=== PATIENT | male | born 1930 | race Caucasian/White ===

== ENCOUNTER → 2016-12-20 | Day surgery (SDC) | payer MEDICARE, BC ==
[~2016-12-20] MED LIST: ATORVASTATIN CA10 MG PO; CLOPIDOGREL BIS75 MG PO; LEVOTHYROXINE50 MCG PO; SYMBICORT 16010.2 GM INH
--- NOTE | ~2016-12-20 | OR ---
Unit #: [id number] #: [id number] Patient: TOMÁS LIN [id number] [address] [address] [id number] O MR#: [id number] NAME: TOMÁS LIN. ROOM: Date of Procedure: 12/20/2016 Admission Date: 12/20/2016 Surgeon: Bernabe Franklin M.D. : 1930 Attending Physician: Bernabe Franklin M.D. OPERATIVE REPORT PREOPERATIVE DIAGNOSES 1. Positive Cologuard test. 2. History of sigmoid colectomy for cancer. 3. Chronic diarrhea. POSTOPERATIVE DIAGNOSES 1. Positive Cologuard test. 2. History of sigmoid colectomy for cancer. 3. Chronic diarrhea. PROCEDURES PERFORMED 1. Esophagogastroduodenoscopy. 2. Biopsy of duodenum for celiac disease. 3. Biopsy of antrum for Helicobacter pylori testing. 4. Attempted colonoscopy to 15 cm. ANESTHESIA Monitored anesthesia care. FINDINGS The patient was found on upper endoscopy to have a small hiatal hernia and mild distal gastritis. On colonoscopy, the patient was found to have an anastomosis at 5 cm. It was widely patent. However at 18 cm, there was a very sharp turn and what appeared to be a stricture or narrowing. We were unable to pass beyond this point safely. SPECIMENS Sent to Pathology. COMPLICATIONS None apparent. CONDITION The patient tolerated the procedure well. INDICATIONS FOR PROCEDURE The patient is an 86-year-old white male, who in the early had a sigmoid colectomy for cancer. He has done well. He had a recent positive Cologuard test. He also has had frequent diarrhea. He presents at this time for evaluation by upper and lower endoscopy. DESCRIPTION OF PROCEDURE Unit #: [id number] #: [id number] Patient: TOMÁS LIN After obtaining informed consent, the patient was brought to the endoscopy suite and after adequate monitored anesthesia care, had the endoscope placed through the mouth into the upper esophagus under direct vision. It was advanced to the second portion of the duodenum without difficulty with the lumen always in view. A biopsy was obtained from the second and third portion of the duodenum to check for celiac disease and pathology. There was no abnormality seen. The duodenal bulb was normal. The pylorus opened normally. There was some mild distal gastritis present and a biopsy was obtained for Helicobacter pylori testing. On retroflexing back to the GE junction, there was a small hiatal hernia seen. No other abnormalities were found in the proximal third, middle third, or incisura. On pulling back above the GE junction, there was no stenosis, stricture, or neoplasm seen. No esophagitis. The remaining portion of the esophagus was within normal limits. Laryngeal structures were grossly normal as viewed from above. At this point in time, on digital examination, the patient had no palpable abnormality and had good sphincter tone on digital examination of the rectum. The colonoscope was placed through the anus and slowly advanced with the lumen always in view. At 15 cm, the patient was found to have his anastomosis from his previous colectomy. It was widely patent and there was no evidence of recurrence. The colonoscope was slowly advanced until 15 to 18 cm, there was a very sharp turn and what appeared to be some stricturing. Despite multiple body position changes and manipulations of the scope, we did not feel it was safe to advance beyond this point. The colonoscope was slowly pulled back. The colon was circumferentially visualized. There was no abnormality seen. We were unable to retroflex in the rectum, but on pulling out, there was no abnormality seen in the anal canal. The scope was removed without difficulty. The patient went from the endoscopy suite to recovery area in stable condition. RECOMMENDATIONS Gastroesophageal reflux sheet given, clear liquids only today, n.p.o. after midnight. Office will call and schedule the patient for barium enema tomorrow. Dictated by... Mikhail Sauceda/michell TD: 12/20/2016 11:04 JOB #: [id number] CC: Renetta King M.D. [facility] OPERATIVE REPORT Page 1 of 1 X Bernabe Franklin MD X PROCEDURE OPERATIVE NOTE
== END | disposition home or self-care (01) ==
LOC: COPS 07:34
DX: K52.9 Noninfective gastroenteritis and colitis, unspecified (principal); K29.70 Gastritis, unspecified, without bleeding; K44.9 Diaphragmatic hernia without obstruction or gangrene; E03.9 Hypothyroidism, unspecified; J45.909 Unspecified asthma, uncomplicated; K21.9 Gastro-esophageal reflux disease without esophagitis; Z85.038 Personal history of other malignant neoplasm of large intestine; Z90.49 Acquired absence of other specified parts of digestive tract; Z86.73 Personal history of transient ischemic attack (TIA), and cerebral infarction without residual deficits; Z88.0 Allergy status to penicillin; Z87.442 Personal history of urinary calculi; Z87.891 Personal history of nicotine dependence
CPT/HCPCS: 87077; 88305

== ENCOUNTER → 2016-12-21 | Outpatient (CLI) | payer MEDICARE, BC ==
--- NOTE | ~2016-12-21 | CR42 ---
[facility] A Service of [facility] & [facility] RADIOLOGY TEXT RESULTS PATIENT: TOMÁS LIN LOCATION: [facility] : [birth year] UNIT #: [id number] AGE: [address]: Bernabe Franklin MD SEX: M ORDER DR: [id number] [facility] [address] [place], [place] [address] [id number] O MR#: [id number] [facility] #: [id number] NAME: TOMÁS LIN : 1930 SEX: M STUDY DATE/TIME: 12/21/2016 11:03 UNIT: [facility] ROOM: STUDY DESCRIPTION: CR Barium Enema Attending Physician: Bernabe Franklin M.D. Referring Physician: Bernabe Franklin M.D. Ordering Physician: Bernabe Franklin M.D. Primary Care Physician: Generic Doctor Not In System MEDICAL IMAGING REPORT This report is preliminary unless electronic signature is present EXAM Fluoroscopic barium enema COMPARISON None. INDICATION 86-year-old male post attempted colonoscopy yesterday. Colonoscopy was incomplete as the scope could not be passed beyond approximately 15 cm due to possible tortuosity or stricture of the colon. Colonoscopy was initially performed due to a positive Cologuard test. Patient has a history of sigmoid colon and partial rectal resection for colon cancer in 1978. The patient reports loose stools and diarrhea. FINDINGS A total of 24 images were obtained. Total fluoro time was 3.4 minutes. The patient was concerned about possible perforation at his rectosigmoid anastomosis due to prior resection in this location. Therefore I personally inserted the rubber catheter tip in the rectum with the patient in the left lateral decubitus position. Then, barium was instilled via gravity. Double contrast imaging was not performed given this is only ordered as a single contrast exam and the patient was also concerned about the possibility of rupture at his anastomosis site. Barium was instilled into the rectum via gravity under fluoroscopic observation. Detailed evaluation of the colon is limited due to performance without double contrast technique. There are bilateral pelvic arterial calcifications as well as right pelvic phleboliths. Suture material is seen within the midline pelvis at the rectosigmoid anastomosis. At the end of the exam, it appears there is some reflux of barium into the terminal ileum, limiting evaluation of the sigmoid colon. No malignant-appearing strictures or other suspicious mucosal lesions of the colon are seen on this exam. There is a relatively long segment smooth appearing stricture STS. [facility] A Service of [facility] & [facility] RADIOLOGY TEXT RESULTS PATIENT: TOMÁS LIN [facility] #: [id number] : [birth year] UNIT #: [id number] AGE: [address]: Bernabe Franklin MD SEX: M ORDER DR: of the sigmoid colon just above the rectosigmoid anastomosis. This may measure up to as much as 2-3 cm in length. IMPRESSION 1. Smooth benign appearing stricture at the rectosigmoid anastomosis measuring up to as much as possibly 2-3 cm in length, although the fluoroscopy machine is not calibrated for exact measurements. 2. No convincing evidence of colon cancer seen on this exam. Barium enema is not as sensitive as colonoscopy for evaluation of primary colonic malignancy. If persistent concern for colonic malignancy, CT colonography may be a more sensitive test. Dictated by... Saran Montalvo M.D. THIS IS AN ELECTRONICALLY VERIFIED REPORT Saran Montalvo M.D. at 12/24/2016 4:14 PM LISA/jason TD: 12/22/2016 09:37 JOB #: [id number] MEDICAL IMAGING REPORT Page 1 of 1 COPY
== END | disposition home or self-care (01) ==
LOC: CRAD 09:51
DX: Z08 Encounter for follow-up examination after completed treatment for malignant neoplasm (principal); K91.81 Other intraoperative complications of digestive system; Z85.038 Personal history of other malignant neoplasm of large intestine
CPT/HCPCS: 74270